=== PATIENT | female | born 1955 | race Caucasian/White ===

== ENCOUNTER 2017-11-09 15:03 | Inpatient (IN) ==
--- NOTE | 2017-11-09 15:35 | Emergency Department Report ---
General Adult HPI - General Chief complaint: Headache Stated complaint: high blood pressure,headache Time Seen by Provider: 11/09/17 15:31 Source: patient Mode of arrival: ambulatory Limitations: no limitations - History of Present Illness HPI narrative: 62-year-old female presents to the emergency department with the chief complaint of elevated blood pressure and an episode where her tongue was numb and felt like her upper extremity was heavy. Patient noted the numbness to her tongue and heaviness in her left upper extremity at approximately 0300 today and thought that she had just slept on her arm wrong and went back to bed. When she awoke her symptoms had resolved. She presented to Dr. Willard's office for further evaluation and treatment and was referred to the emergency department for CVA workup along with control of her elevated blood pressure. She denies any current pain or discomfort other than a typical frontal headache which is moderate in nature. The typical headache is normal for her when her blood pressure is elevated. The headache is dull in nature. No radiation. No other complaints or associated symptoms at this time. She was at home when she experienced her symptoms. - Related Data Home Medications Medication Instructions Recorded Confirmed Insulin Glargine,Hum.rec.anlog 53 unit SQ HS #0 vial 10/17/16 11/09/17 [Lantus] LINAGLIPTIN 5mg [Tradjenta] 5 mg PO DAILY #90 tab 10/17/16 11/09/17 Aspirin [Aspirin EC] 81 mg PO DAILY 11/09/17 11/09/17 Levothyroxine Sodium 100 mcg PO ACB 11/09/17 11/09/17 Lisinopril [Prinivil] 30 mg PO DAILY 11/09/17 11/09/17 Metformin [Glucophage] 1,000 mg PO BIDWM 11/09/17 11/09/17 Metoprolol Tartrate 100 mg PO BID 11/09/17 11/09/17 Naproxen Sodium [Aleve] 220 mg PO BID PRN 11/09/17 11/09/17 Allergies Allergy/AdvReac Type Severity Reaction Status Date / Time latex Allergy Intermediate RASH Verified 11/09/17 15:09 nickel Allergy Unknown Verified 11/09/17 15:09 Penicillins Allergy Unknown Verified 11/09/17 15:09 Sulfa (Sulfonamide Allergy Unknown Verified 11/09/17 15:09 Antibiotics) Review of Systems Constitutional: Denies: fever, chills Eyes: Denies: eye pain, vision change ENT: Denies: ear pain, throat pain Cardiovascular: Denies: chest pain, palpitations Respiratory: Denies: cough, dyspnea Gastrointestinal: Denies: abdominal pain, nausea, vomiting, diarrhea Genitourinary: Denies: urgency, dysuria, frequency Musculoskeletal: Denies: back pain, arthralgia Integumentary: Denies: erythema, rash Neurological: Reports: headache (typical). Denies: paresthesias Psychiatric: Denies: anxiety, depression Endocrine: Denies: fatigue, polydipsia Hematological/Lymphatic: Denies: easy bruising, lymphadenopathy Allergic/Immunologic: Denies: urticaria, itchy eyes PFSH Patient Stated Medical History Macular Degeneration Yes: mild, normal for age and DM Hypertension Yes Diabetes Mellitus Type 1 Yes Hx Kidney Stones Yes Other Yes: CKD Shingles Yes Blood Transfusions Yes: 1975 Post Menopausal Yes Surgical History: -hysterectomy due to fibroids in 1999. -c-sections X2. Family History: Reviewed and Noncontributory. - Social History Smoking status: Never smoker Substance use type: does not use Alcohol intake frequency: does not drink Physical Exam - Limitations Limitations: no limitations - General General appearance: alert, in no apparent distress - Normal Exams: Head:: Normocephalic without trauma Eyes:: Pupils are PERRLA w/ EOMI, No scleral icterus, irritation, or foreign bodies noted ENMT:: No facial trauma, nasal exudates, pharyngeal erythema, or exudates are noted Dental: No fractured, loose, or missing teeth noted Neck:: Full range of motion, without adenopathy, JVD, bruits or thyromegaly Chest/Respirations:: Clear all plata, with good airflow, and symmetry bilaterally Cardiovascular:: Regular rate and rhythm, without murmur or gallop, Pulses 2+ all extremities, capillary refill, <2 seconds all extremities Abdomen:: Bowel sounds positive, soft, non-tender, non-distended, no hepatosplenomegaly, masses or bruits noted Lymphatic:: No lymphadenopathy, or lymphedema noted Musculoskeletal:: No tenderness, or deformity noted, good range of motion, all extremities Integumentary:: No rashes, hives, or bruising noted, hair and nails, without abnormality Neurological:: Patient is alert (alert and oriented 3. Cranial nerves II12 intact. Muscle strength. Normal motor. Normal sensation. Normal coordination. Normal speech. Normal gait. Absent Babinski bilaterally. Reflexes 2/4 in all extremities. No focal neurologic deficit. Unremarkable neurologic examination.), and oriented, cranial nerves, motor/sensory/cerebellar , exams w/o gross deficits, to observation Psychiatric:: Patient exhibits, appropriate attention, emotion and affect Course Vital Signs Temperature 99.0 F 11/09/17 15:09 Pulse Rate 81 11/09/17 15:09 Respiratory Rate 19 11/09/17 15:09 Blood Pressure 237/107 H 11/09/17 15:09 Pulse Oximetry 94 11/09/17 15:09 Temperature 98.2 F 11/10/17 08:00 Pulse Rate 80 11/10/17 12:43 Respiratory Rate 16 11/10/17 11:49 Blood Pressure 182/72 H 11/10/17 12:43 Pulse Oximetry 98 11/10/17 12:43 Medical Decision Making - MDM Narrative Medical decision making narrative: Labs / imaging were discussed in detail with the patient and questions are answered. Patient is given fentanyl and Zofran intravenously in the emergency department under the thought that the improvement of the headache may improve the patient's blood pressure. Patient was then given 10 mg of hydralazine intravenously when her blood pressure did not appear to improve. Patient is to be allowed permissive hypertension and due to the concern that the 2 medications may hit her system at once and caused her blood pressure to drop lower than permissive hypertension would allow we will monitor her blood pressure for a few more readings and then if it still remains elevated Dr. Willard will add labetalol. Patient is discussed with Dr. Willard and admitted to his service to the CCU for further evaluation and treatment. Accepting physician is in agreement with the current plan of management. No further orders. Patient is given aspirin 324 mg by mouth 1. She is not a candidate for TPA as her symptoms have resolved in entirety. Her NIH is 0. She is admitted to the CCU in improved condition. No further orders from accepting physician. She does not have any urinary symptoms. Dr. Willard will await the results of the urine culture prior to initiating antibiotic therapy. - Differential Diagnosis CVA, TIA, metabolic disorder UTI - Lab Data Result diagrams: 11/10/17 04:42 11/10/17 04:42 Lab Results 11/09/17 11/09/17 11/09/17 Range/Units 15:33 16:28 16:28 WBC 11.2 H (4.5-11.0) T/MM3 RBC 4.77 (4.00-5.20) M/MM3 Hgb 13.2 (12-16) GM/DL Hct 40.5 (36-46) % MCV 84.9 (80-100) UM3 MCH 27.7 (26-34) UUG MCHC 32.6 (31-37) GM/DL RDW Std Deviation 38.9 (36.9-50.2) FL Plt Count 364 (130-400) T/MM3 MPV 9.8 (9.4-12.4) UM3 Immature Gran % (Auto) 0.5 (0.0-0.5) % Neut % (Auto) 65.3 (33-66) % Lymph % (Auto) 24.6 (23-45) % [place] % (Auto) 7.1 (0-9.0) % Eos % (Auto) 2.1 (0-4) % Baso % (Auto) 0.4 (0-2) % Neut # (Auto) 7.3 (1.8-7.7) T/MM3 Lymph # (Auto) 2.7 (1-4.8) T/MM3 [place] # (Auto) 0.8 (0-0.8) T/MM3 Eos # (Auto) 0.2 (0-0.5) T/MM3 Baso # (Auto) 0.0 (0-0.2) T/MM3 Abs Immat Gran (auto) 0.06 H (0.00-0.03) T/MM3 INR (0.92-1.18) APTT (24-36) SEC Turbidity (0-20) Sodium (134-144) MEQ/L Potassium (3.6-5) MEQ/L Chloride (98-107) MEQ/L Carbon Dioxide (22-30) MEQ/L Anion Gap (5-15) MEQ/L BUN (7-17) MG/DL Creatinine (0.7-1.2) mg/dL GFR Calculation BUN/Creatinine Ratio (6-26) RATIO Glucose (65-110) MG/DL Glucometer 73 (65-110) mg/dL Calculated Osmolality (261-280) MOSM/KG Calcium (8.4-10.2) MG/DL Total Bilirubin (0.20-1.30) MG/DL Icterus Index (0-7) AST (14-36) U/L ALT (1-35) U/L Alkaline Phosphatase (38-126) U/L Troponin I (0-0.12) ng/ml Total Protein (6.3-8.2) g/dL Albumin (3.5-5.0) g/dL Globulin (2.4-3.6) G/DL Albumin/Globulin Ratio (1.1-2.2) RATIO Specimen Hemolysis (0-25) Ur Collection Type Urine, void-cc/notcc Urine Color Yellow (YELLOW) Urine Clarity Sl cloudy Urine pH 5.0 (5.0-8.0) Ur Specific [place] >=1.030 H (1.015-1.025) Urine Protein 2+ A (NEGATIVE) Urine Glucose (UA) Negative (NEGATIVE) Urine Ketones Negative (NEGATIVE) Urine Occult Blood Trace-lysed (NEGATIVE) Urine Nitrate Positive A (NEGATIVE) Urine Bilirubin Negative (NEGATIVE) Urine Urobilinogen 0.2 (NORMAL) EU/DL Ur Leukocyte Esterase Negative (NEGATIVE) Urine RBC 0-1 (0-3) /HPF Urine WBC 20-30 H (0-5) /HPF Urine Bacteria 3+ H (NEGATIVE) Ur Culture Indicated? Cult reflexed &setup 11/09/17 11/09/17 11/09/17 Range/Units 16:28 16:28 18:01 WBC (4.5-11.0) T/MM3 RBC (4.00-5.20) M/MM3 Hgb (12-16) GM/DL Hct (36-46) % MCV (80-100) UM3 MCH (26-34) UUG MCHC (31-37) GM/DL RDW Std Deviation (36.9-50.2) FL Plt Count (130-400) T/MM3 MPV (9.4-12.4) UM3 Immature Gran % (Auto) (0.0-0.5) % Neut % (Auto) (33-66) % Lymph % (Auto) (23-45) % [place] % (Auto) (0-9.0) % Eos % (Auto) (0-4) % Baso % (Auto) (0-2) % Neut # (Auto) (1.8-7.7) T/MM3 Lymph # (Auto) (1-4.8) T/MM3 [place] # (Auto) (0-0.8) T/MM3 Eos # (Auto) (0-0.5) T/MM3 Baso # (Auto) (0-0.2) T/MM3 Abs Immat Gran (auto) (0.00-0.03) T/MM3 INR 1.04 (0.92-1.18) APTT 26.2 (24-36) SEC Turbidity < 20 (0-20) Sodium 144 (134-144) MEQ/L Potassium 3.8 (3.6-5) MEQ/L Chloride 103 (98-107) MEQ/L Carbon Dioxide 26 (22-30) MEQ/L Anion Gap 15 (5-15) MEQ/L BUN 25.0 H (7-17) MG/DL Creatinine 1.2 (0.7-1.2) mg/dL GFR Calculation 45 BUN/Creatinine Ratio 21 (6-26) RATIO Glucose 84 (65-110) MG/DL Glucometer 67 (65-110) mg/dL Calculated Osmolality 280 (261-280) MOSM/KG Calcium 9.8 (8.4-10.2) MG/DL Total Bilirubin 0.50 (0.20-1.30) MG/DL Icterus Index < 2 (0-7) AST 21 (14-36) U/L ALT 18 (1-35) U/L Alkaline Phosphatase 79 (38-126) U/L Troponin I < 0.012 (0-0.12) ng/ml Total Protein 8.2 (6.3-8.2) g/dL Albumin 4.6 (3.5-5.0) g/dL Globulin 3.6 (2.4-3.6) G/DL Albumin/Globulin Ratio 1.3 (1.1-2.2) RATIO Specimen Hemolysis < 15 (0-25) Ur Collection Type Urine Color (YELLOW) Urine Clarity Urine pH (5.0-8.0) Ur Specific [place] (1.015-1.025) Urine Protein (NEGATIVE) Urine Glucose (UA) (NEGATIVE) Urine Ketones (NEGATIVE) Urine Occult Blood (NEGATIVE) Urine Nitrate (NEGATIVE) Urine Bilirubin (NEGATIVE) Urine Urobilinogen (NORMAL) EU/DL Ur Leukocyte Esterase (NEGATIVE) Urine RBC (0-3) /HPF Urine WBC (0-5) /HPF Urine Bacteria (NEGATIVE) Ur Culture Indicated? - Radiology Data CT head: No acute processes. Chest x-ray: No acute processes. - EKG Data EKG #1 EKG results narrative: Sinus rhythm. 78 bpm. No STEMI. Disposition Clinical Impression: Uncontrolled hypertension TIA (transient ischemic attack) Qualifiers: Transient cerebral ischemia type: other Qualified Code(s): G45.8 - Other transient cerebral ischemic attacks and related syndromes [place] [facility] [place] Condition: Stable Time of Disposition: 17:20 (Admit. Dr. Willard. ) - Seen By: physician
--- NOTE | 2017-11-09 16:01 | XRay Report ---
Indication: htn PROCEDURE: XR chest 1V: Encounter: Initial Comparison: None FINDINGS: The lungs are clear. There is no abnormal airspace opacity, pleural effusion or pneumothorax identified. The heart size, pulmonary vasculature and mediastinum are within normal limits. No significant skeletal abnormality is seen. IMPRESSION: No acute cardiopulmonary abnormality. .
--- NOTE | 2017-11-09 16:03 | CT Scan Report ---
Indication: HTN, MARTE PROCEDURE: CT head/brain wo con: Encounter: Initial Comparison: None Technique: Axial CT images through the head were performed without contrast. Iterative Reconstruction dose reducing technique was utilized. FINDINGS: The ventricles are of normal size, shape, and contour for the patient's age. There are scattered areas of low attenuation in the white matter which most likely represent changes from chronic microvascular ischemia. The brainstem, cerebellum, and cerebral hemispheres otherwise have a normal morphology and CT attenuation. There is no evidence of midline displacement. No hemorrhage, signs of acute territorial stroke, mass effect, mass lesions, or edema is evident. The visualized portions of the skull base, midface, and calvarium demonstrate no abnormality. The paranasal sinuses are well aerated and free of significant disease. The tympanic and mastoid cavities appear normal. IMPRESSION: No acute intracranial abnormality or hemorrhage. .
[2017-11-09] MEDS: SALINE FLUSH 10ml SYRINGE IVF PRN ×3 (16:37→17:35)
[2017-11-09] MEDS ORDERED: FentaNYL 100 MCG/2 ML INJECTION IVP ONE (16:59)
[2017-11-09] MEDS ORDERED: ONDANSETRON 4 MG/2 ML INJECTION IVP ONE (16:59)
[2017-11-09] MEDS ORDERED: HYDRALAZINE 20 MG/ML INJECTION IVP ONE (17:22)
[2017-11-09] MEDS ORDERED: ASPIRIN 81 MG CHEWABLE TABLET PO ONE (17:24)
[2017-11-09] MEDS ORDERED: LABETALOL 100mg/20ml INJECTION IVP PRN (19:09)
--- NOTE | 2017-11-09 19:39 | History & Physical Report ---
History of Present Illness Date: 11/09/17 Chief complaint: TIA's and hypertensive emergency HPI: patient is a pleasent 62yo female known to our clinic. she has a history of T2DM, HTN, hyperlipidemia. she does take a baby aspirin daily. she was in her usual state of health until this AM. she woke up about 4AM with numbness and poor coordination in her tongue and left upper extremity weakness and poor coordination. this lasted about 30 minutes and resolved completely. she has just felt "out of it" and has had a moderate right parietal headache since then but nothing focal from a neurologic standpoint. patient was seen in clinic for a routine follow up today and this story was noted. it was also noted that her SBP's were in the 190's and 200's. it was recommended she go to the ER immediately and, after some convincing, she did. in the ER she had a normal head CT, an unremarkable cmp, a cbc with a mild leukocytosis and otherwise normal. coagulation studies were unremarkable. a CXR and ekg in the ER were unremarkable as well. UA in the ER today had a trace amount of ketones as well as some bacteria but patient has no urinary symptoms. UA otherwise unremarkable. SBP's were unchanged in the ER despite doses of IV fentanyl and hydralazine. patient did get 324mg PO ASA in ER once it was clear there was no head bleed. other vitals were stable. patient has had no neurologic issues since the event noted above this AM. she does note that she's had X2 similar episodes over the past month as well. otherwise she's doing ok. no residual focal deficits. had right parietal headache as noted above which is moderate. no other headaches. no stroke symptoms at this time. no seizure symptoms, cranial nerve symptoms, dysphagia, aspiration, fevers, chills, body aches, fatigue, weakness, falls, trauma, injuries, ear pain, sinus pain, sore throat, runny nose, photophobia, meningeal symptoms, confusion, obtundation, altered mentation, encephalopathic symptoms. no mood changes, depression symptoms, manic symptoms, personality changes. no numbness/weakness/tingling/pain in extremities or anywhere else at this time. no vision changes. no dizziness, syncope, near-syncope. no skin changes or new rashes. no recent travel, camping, sick exposures. no chest pain, SOA, orthopnea, PND, new edema, leg asymmetry. no changes in exertional tolerance. no heart failure symptoms. no palpitations, cough, sputum production. no vertigo or tinnitus. no abdominal pain, GERD symptoms, nausea, vomiting, diarrhea, constipation, bloody/black stools, hematemesis, coffee ground emesis, melena, BRBPR, constipation, diarrhea, bloody/black stools, boggy/inflammed/ swollen/painful focal joints or muscle groups. she is somewhat anxious about what's going on with this issues but no anxiety issues in general. no dysuria, hematuria, urinary frequency, flank pain, nocturia, urinary/bowel incontinance, urinary retention. no alcohol or illicit substance use. she does smoke still. no memory changes or blackouts. no polyuria or oliguria or other urinary symptoms/changes. no new issues otherwise at this time. Review of Systems - Constitutional Constitutional: Present: as per HPI - EENMT Eyes: Present: as per HPI Ears: Present: as per HPI Balance: Present: as per HPI Nose: Present: as per HPI Mouth/Throat: Present: as per HPI - Cardiovascular Cardiovascular: Present: as per HPI Vascular: Present: see HPI - Respiratory Respiratory: Present: as per HPI - Gastrointestinal Gastrointestinal: Present: as per HPI - Genitourinary Genitourinary: Present: as per HPI - Musculoskeletal Musculoskeletal: Present: as per HPI - Integumentary/Breasts Integumentary: Present: as per HPI - Neurological Neurological: Present: as per HPI - Psychiatric Psychiatric: Present: as per HPI - Endocrine Endocrine: Present: as per HPI - Hematologic/Lymphatic Hematologic/Lymphatic: Present: as per HPI - Allergic/Immunologic Allergic/Immunologic: Present: as per HPI Past Medical History Patient Stated Medical History Macular Degeneration Yes: mild, normal for age and DM Hypertension Yes Diabetes Mellitus Type 2 Yes Hx Kidney Stones Yes Other Yes: CKD Shingles Yes Blood Transfusions Yes: 1975 Post Menopausal Yes -HTN -hypothyroid -hyperlipidemia Surgical History: -hysterectomy due to fibroids in 1999. -c-sections X2. she did require a blood transfusion for one of these. Family History: -father had T2DM, HTN, CAD -Mother had breast cancer, HTN, CAD -X1 sister who has had breast cancer. Family History Updates: see the above. - Social History Smoking status: Never smoker Medications Home Medications Medication Instructions Recorded Confirmed Type Insulin Glargine,Hum.rec.anlog 53 unit SQ HS #0 vial 10/17/16 11/09/17 History [Lantus] LINAGLIPTIN 5mg [Tradjenta] 5 mg PO DAILY #90 tab 10/17/16 11/09/17 History Aspirin [Aspirin EC] 81 mg PO DAILY 11/09/17 11/09/17 History Levothyroxine Sodium 100 mcg PO ACB 11/09/17 11/09/17 History Lisinopril [Prinivil] 30 mg PO DAILY 11/09/17 11/09/17 History Metformin [Glucophage] 1,000 mg PO BIDWM 11/09/17 11/09/17 History Metoprolol Tartrate 100 mg PO BID 11/09/17 11/09/17 History Naproxen Sodium [Aleve] 220 mg PO BID PRN 11/09/17 11/09/17 History Allergies Allergy/AdvReac Type Severity Reaction Status Date / Time latex Allergy Intermediate RASH Verified 11/09/17 15:09 nickel Allergy Unknown Verified 11/09/17 15:09 Penicillins Allergy Unknown Verified 11/09/17 15:09 Sulfa (Sulfonamide Allergy Unknown Verified 11/09/17 15:09 Antibiotics) Exam Vital Signs: Temperature 98.6 F 11/09/17 18:44 Pulse Rate 92 11/09/17 17:46 Respiratory Rate 18 11/09/17 17:45 Blood Pressure 206/86 H 11/09/17 17:46 Pulse Oximetry 95 11/09/17 17:46 Telemetry Rhythm: Sinus Rhythm Height/Weight/BMI: Height 1.65 m Weight 94.6 kg Body Mass Index 34.7 - Constitutional Present: no acute distress, cooperative Comments: no combative, agitated, somnolent, obtunded. - Routine HEENT Exam Head: Present: normocephalic, atraumatic Comments: TM's clear b/l at this time. no mastoid tenderness b/l at this time. nares patent, valentin normal. no sinus pain to palpation. no conjuncitval injection. throat clear. no clinical evidence of mucor throughout ENT exam today. - Routine Neck Exam Present: supple, full ROM Comments: no JVD. no nuchal rigidity. no photophobia or clinical evidence of meningitis at this time. no clinical evidence of encephalopathy, wendi, depression, personality changes, altered mentation, obtundation, confusion, psychosis, delerium. trachea midline. - Routine Chest/Breast/Axilla Exam Comments: no tenderness to chest wall. - Routine Respiratory Exam Present: CTA bilaterally Comments: LCTAB. no crackles/wheezes/rales. moving air well. lung sounds heard in all lung plata b/l at this time. no respiratory distress, retractions, accessory muscle use, stridor, airway compromise b/l at this time. - Routine Cardiovascular Exam Present: RRR, no murmur Comments: no changes in cardiac exam from previous baseline. no new edema. legs symmetrical and compartments soft b/l in LE"s at this time. no boggy/inflammed/ swollen/painful focal joints or muscle groups. clinically well perfused in all 4 extremities b/l at this time. - Routine Abdominal Exam Present: soft (X4.), normoactive bowel sounds (X4.), non distended (X4.), non tender (X4.) Comments: no guarding, rebound, rigidity. no organomegally. no ascites, jaundice, distension. - Routine Exam Comments: no tenderness over bladder area. no clinical evidence of upper or lower UTI at this time. - Routine Extremities Exam Comments: see the above. no pallor or cyanosis of extremities. - Routine Back/Spine/Pelvis Exam Comments: see the above. - Routine Skin Exam Present: intact Comments: no skin changes from previous to uncovered areas. - Routine Neurological Exam Present: alert, oriented X3 CN2-12 in tact to testing. gag and cough normal. sensation/motor/muscle strength/DTR's normal and symmetrical b/l X4 extremities at this time. PERRLA. EOMI. no nystagmus. consensual reflex in tact. no clinical evidence of upper motor neuron lesions at this time. gait is normal. affect and cognition unchanged from usual baseline. memory and personality unchanged from usual baseline. no clinical evidence of wendi, depression, anxiety, altered mentation , obtundation, confusion, encephalopathy, meningitis, photophobia, neck rigidity , psychosis, delerium at this time. - Routine Psychiatric Exam Present: normal affect, normal thought process, cooperative, good insight, good judgment Comments: no homicidal/suicidal ideations. Results - Labs CBC & Chem 7: 11/09/17 16:28 11/09/17 16:28 Assessment and Plan Assessment and Plan: new onset TIA's hypertensive emergency tension/hypertensive induced headache T2DM HTN hyperlipidemia hypothyroid -admit to inpatient and ICU, vitals per gaitan protocol with call parameters, I's and O's, daily weights, diabetic/cardiac diet, telemetry. -add TSH, serial troponins X3, mg, phos now. see above for other testing and results from this stay. -cbc, cmp in the AM. -MRI/MRA head/neck ordered as is MRA neck. echocardiogram ordered. -continue ASA (patient already had 324mg PO today). add plavix at 75mg PO daily, first dose now. labetalol IV prn titrated to keep SBP's from 170 to 180 systolic. will allow some permissive HTN given her recent ischemic events. start novolog s/s, GLUBS, hypoglycemia protocol. continue current lisinopril from home with hold parameters. continue home synthroid. tylenol prn for headaches started. -hold home trandjenta, metformin, lantus as patient had some borderline low blood sugars earlier today. will consider reinstitution of these meds depending on what blood sugars look like from here on. -Dr. Shell of neurology consulted and case discussed with in detail. he agrees with current management above. -further management pending the above. tobacco use -consider nicotine patch if s/s withdrawal occur. right now there is no evidence of this. all other chronic medical conditions stable and no changes to plan of care at this time. ppx -SCD's for DVT ppx. hold on pharmacologic DVT ppx right now given high blood pressures but will consider shortly. -PO diet as above for GI ppx. -FULL CODE -dispo heavily dependent on the above. DVT Prophylaxis: SCD's GI Prophylaxis: other (PO diet.) Resuscitation Status: Full Code - Time spent with patient Time with patient PN: 50 minutes - Physician Narrative Narrative: Date: 11/09/17 Time: 1935 Sepsis Assessment - Evaluation Severe Sepsis: none seen
[2017-11-09] MEDS ORDERED: DEXTROSE 50% SYRINGE 50ml (1 AMP) IVP PRN (19:53)
[2017-11-09] MEDS ORDERED: GLUCOSE ORAL GEL 40% 37.5gm PO PRN (19:53)
[2017-11-09] MEDS ORDERED: CLOPIDOGREL 75 MG TABLET PO ONE (20:03)
[2017-11-09] MEDS: ACETAMINOPHEN 325 MG TABLET PO PRN (20:13)
[2017-11-10] MEDS: LEVOTHYROXINE 100 MCG TABLET PO SCH (06:04)
[2017-11-10] MEDS: LABETALOL 100mg/20ml INJECTION IVP PRN ×3 (08:27→18:27)
[2017-11-10] MEDS: CLOPIDOGREL 75 MG TABLET PO SCH (08:32)
[2017-11-10] MEDS: ASPIRIN *EC* 81 MG TABLET PO SCH (08:32)
[2017-11-10] MEDS ORDERED: LISINOPRIL 30 MG TABLET PO SCH (09:00)
--- NOTE | 2017-11-10 09:44 | Progress Note ---
- Date 11/10/17 Subjective: no events called on telemetry. patient feels like things are going well now. denies issues since late yesterday. apparently she had episode last night where she felt like she had some trouble wordfinding. no other obvious focal deficits with this but this resolved within a few minutes and went away. overall SBP's in 160's to 180's overnight but still spikes into the 200's at times. since the above mentioned time she has felt well. her right sided parietal headache is unchanged from admission and this does seem to respond to tylenol for the most part. no new headaches and no changes in her baseline one. no numbness/weakness/tingling in extremities or otherwise. no fevers, chills, body aches, fatigue, weakness, falls, trauma, injuries, ear pain, sinus pain, sore throat, runny nose. she's a little lightheaded right after the labetalol is given and right when she gets up but this is mild, only lasts a second and then resolves. no vertigo and this appears to be true lightheadedness. no facial numbness/droop and no vision changes. no dysphagia. no cranial nerve symptoms or deficits. no chest pain. patient denies SOA at any time to me. no changes in exertional tolerance. no new edema or leg asymmetry. no palpitations. no cough, sputum production, hemoptysis. patient did require 2 liters of oxygen overnight at times but hard to say why as she denies SOA to me. O2 sats appear to have dropped into the 80' s last night but there's some question as to whether the oximeter was picking up correctly. either way, she's had no cardio-respiratory symptoms throughout the day and O2 sats have been fine since. no abdominal pain, GERD symptoms, nausea, vomiting, diarrhea, constipation, bloody/black stools, hematemesis, coffee ground emesis, melena, BRBPR, dysphagia, GI warning symptoms. eating and drinking without issue. appetite is ok. no night sweats. had X1 normal BM since we spoke yesterday. no boggy/inflammed/swollen focal joints or muscle groups. denies falls, trauma, injuries, unsteadiness. no mood changes, depression symptoms, neck rigidity, meningeal symptoms, confusion, obtundation, altered mentation, psychotic symptoms, delerium. no new issues otherwise at this time. Objective Vital signs: Temperature 98.2 F 11/10/17 08:00 Pulse Rate 79 11/10/17 08:00 Respiratory Rate 28 H 11/10/17 04:00 Blood Pressure 152/79 H 11/10/17 04:00 Pulse Oximetry 99 11/10/17 04:00 Rhythm: Normal Sinus Rhythm Height/Weight/BMI: Height 1.65 m Weight 94.4 kg Body Mass Index 34.7 - Constitutional Present: no acute distress, cooperative Comments: not combative, somnolent, obtunded. - Routine HEENT Exam Head: Present: normocephalic, atraumatic ENT: Present: mucous membranes moist Comments: no changes. - Routine Respiratory Exam Present: CTA bilaterally Comments: lungs CTAB without crackles, wheezes, rales at this time. moving air well. lung sounds heard in all lung plata b/l at this time. no respiratory distress , retractions, accessory muscle use, stridor, airway compromise b/l at this time. - Routine Cardiovascular Exam Present: RRR, no murmur Comments: no changes to cardiac exam from previous. no new edema. legs symmetrical and compartments soft b/l in LE's at this time. clinically well perfused in all 4 extremities b/l at this time. no pallor or cyanosis of extremities. no boggy/ inflammed/swollen focal joints or muscle groups. - Routine Abdominal Exam Present: soft (X4.), normoactive bowel sounds (x4.), non distended (X4.), non tender (X4.) Comments: no distension, ascites, jaundice. no organomegally. no rebound, guarding, rigidity. - Routine Exam Comments: no tenderness over bladder area. no clinical evidence of upper UTI at this time. - Routine Extremities Exam Comments: see the above. - Routine Back/Spine/Pelvis Exam Comments: see the above. - Routine Musculoskeletal Exam Musculoskeletal: Present: no joint swelling, no tenderness, no erythema, moving extremities well - Routine Skin Exam Present: intact Comments: no skin changes from previous to uncovered areas. - Routine Neurological Exam Present: alert, oriented X3 CN2-12 in tact. sensation/motor/muscle strength/DTR's normal and symmetrical b/ l X4. PERRLA. EOMI. no nystagmus. consensual reflex in tact. no clinical evidence of upper motor neuron lesion at this time. affect and cognition unchanged from usual baseline. no clinical evidence of wendi, depression, anxiety, altered mentation, obtundation, meningitis, confusion, psychosis, photophobia, delerium at this time. - Routine Lymphatic Exam Comments: no lymphedema. - Routine Psychiatric Exam Present: normal affect, normal thought process, good insight Comments: see the above as well. Results - Labs CBC & Chem 7: 11/10/17 04:42 11/10/17 04:42 Assessment and Plan Assessment and Plan: new onset TIA's hypertensive emergency acute cystitis with gram negative rods in urine culture growing thus far tension/hypertensive induced headache questionable hypoxemia last night new anemia of uncertain etiology T2DM HTN hyperlipidemia hypothyroid -continue inpatient and ICU, vitals per gaitan protocol with call parameters, I's and O's, daily weights, diabetic/cardiac diet, telemetry, up with assist. blood pressures generally in 160's to 180's systolic and can bring down more aggressively now that we're far enough out. bp still does spike from time to time. hard to tell whether hypoxemia was genuine as noted above. patient denies cardiorespiratory symptoms as noted above. O2 sats ok today. history or physical exam not yielding an obvious cause. will continue to monitor on continuous pulse oximetry here in the ICU and see if it reoccurs. -TSH, troponins X3, mg, phos, MRI/MRA head/neck, MRA neck unremarkable at this time. GLUBS only as high as mid-100's at highest. -follow cbc and cmp in the AM. follow H and H this evening. -urine culture with gram negative rods and speciation and sensitivities pending. echocardiogram pending. -continue aspirin, plavix, labetalol IV prn, novolog s/s, GLUBS, hypoglycemia protocol. restart home lisinopril with dose now. continue home synthroid. continue tylenol prn for headaches. will likely convert previous home metoprolol to PO labetalol upon discharge. continue cipro day 1 orally. -continue to hold home trandjenta, metformin, lantus, metoprolol for now. -Dr. Shell of neurology consulted and case discussed with in detail. he agrees with current management above. -further management pending the above. tobacco use -consider nicotine patch if s/s withdrawal occur. all other chronic medical conditions stable and no changes to plan of care at this time. ppx -continue SCD's for DVT ppx. holding on pharmacologic DVT ppx right now given high blood pressures but will consider shortly. still has some spikes into 200's after her MRI today. -PO diet as above for GI ppx. -FULL CODE -dispo will continue ICU at this time. DVT Prophylaxis: SCD's GI Prophylaxis: other (PO diet.) Resuscitation Status: Full Code - Time spent with patient Time with patient PN: 25 minutes Sepsis Assessment - Evaluation Severe Sepsis: none seen
[2017-11-10] MEDS: INSULIN ASPART 100unit/ml INJECTION SQ PRN (10:19)
[2017-11-10] MEDS ORDERED: SALINE FLUSH 10ml SYRINGE ONE (10:45)
--- NOTE | 2017-11-10 11:41 | Consultation ---
DATE OF CONSULTATION 11/10/[address] Willard PATIENT'S CHIEF COMPLAINT Speech problem and left sided numbness and weakness. HISTORY OF PRESENT ILLNESS The patient is a 62-year-old female with history of hypertension, hyperlipidemia and diabetes mellitus. The patient woke up in the [employer] and powerplant [employer] yesterday with symptoms of difficulty expressing herself and speaking. The patient was having difficulty moving her left arm due to weakness and mild numbness. She also had some numbness on the left side of her face. The patient went back to sleep and woke up later in the morning with resolution of those symptoms. She came to see Dr. Willard later in the day to check on some other lab work that she has done earlier. Her blood pressure was found to be very high in the 200/100 range. The patient was admitted to the hospital to evaluate for a potential stroke and blood pressure control. She was started on labetalol and this has helped decrease her blood pressure gradually. She continues to have spike in blood pressure in the 190/100 range. The patient said that overnight she had another episode of difficulty speaking which lasted for about 2 minutes. This has later improved with no residual problem. She denies having any current weakness or numbness in the extremities. Her speech is back to normal. She is still anxious about her condition and she complains of headache, probably associated with high blood pressure. The patient had a CT scan in the emergency room that was read as unremarkable. There was area of potential ischemic changes in the right hemisphere which could be old. The patient's lab work also showed evidence of urinary tract infection. The patient has not been complaining about that in particular. PHYSICAL EXAMINATION The patient was awake, alert, oriented x 3. Pupils were round, reactive and equal. Extraocular muscles were intact. Visual field was full. Speech was slow, hesitant and articulate. There was no significant facial weakness or numbness on examination. Motor examination in the upper extremities was normal bilaterally. There was some fine motor slowing on the left compared to the right. Coordination for [id number] was slightly slower on the left compared to the right. Sensory examination for light touch and temperature sensation was symmetrical in the arms and diminished in the feet due to neuropathy from diabetes. Deep tendon reflexes were 2-/4. Plantar reflexes were mute bilaterally. ASSESSMENT Transient ischemic attack associated with expressive aphasia, left facial and arm weakness and numbness. This initially resolved with potential recurrence overnight. The patient was started on Plavix in addition to the aspirin she has been taking on a regular basis for stroke prevention. Her blood pressure continues to be elevated despite being on labetalol. This has caused the patient to have headache and it also can be a risk factor for having TIAs due to vasospasm. PLAN 1. Continue aspirin and Plavix for stroke prevention. 2. Optimize treatment for high blood pressure and try to increase it by 10% daily if possible. 3. Provide good fluid intake. 4. Provide speech evaluation for swallowing and articulation. 5. Treat the UTI promptly which sometimes can worsen her symptoms in general. 6. The patient may benefit from physical and occupational therapy if she has more weakness. KERRY
[2017-11-10] MEDS: CIPROFLOXACIN 250 MG TABLET PO SCH ×2 (14:12→23:02)
[2017-11-10] MEDS: ACETAMINOPHEN 325 MG TABLET PO PRN ×2 (14:13→18:28)
[2017-11-10] MEDS: SALINE FLUSH 10ml SYRINGE IVF PRN ×2 (14:15→18:29)
--- NOTE | 2017-11-10 15:33 | Magnetic Resonance Report ---
Indication: TIA's PROCEDURE: MR head/brain/ang head wo/w: Encounter: Initial Comparison: CT head from yesterday Technique: Multiplanar, multisequence, MR imaging of the head with and without contrast was acquired. MRA imaging of the head without contrast was acquired. Maximum intensity projection (MIP) reformatted images were produced. 3-dimensional volume rendered imaging of the [place] was performed by the technologist on a dedicated workstation. Contrast: 19 mL of ProHance Findings: MRI head: The ventricles are of normal size, shape, and contour for the patient's age. There are small nonspecific punctate areas of T2-weighted and T2 FLAIR weighted signal abnormality in the deep frontoparietal white matter that most likely represent small vessel ischemic disease. This is of a degree that is at the upper limits of normal for the patient's age. The brain stem, cerebellum, and cerebral hemispheres otherwise have a normal morphologic appearance as well as MR signal intensity on all pulse sequences. Following intravenous administration of contrast, no areas of abnormal enhancement are evident. There are no areas of restricted diffusion on diffusion weighted imaging to suggest an acute infarct. There is no evidence of an intracranial mass lesion, intracranial hemorrhage, or hydrocephalus. The visualized portions of the orbits, calvarium, paranasal sinuses, and skull base demonstrate no significant abnormality. MRA head: The intracranial portions of the vertebral arteries, internal carotid arteries, and their major branches show no significant stenosis or other vascular anomaly. No aneurysms or vascular malformations are evident. Impression: 1. MRI head: Unremarkable MRI of the head for the patient's age with and without contrast. 2. MRA head: No evidence of aneurysm or flow-limiting arterial stenosis. .
[2017-11-10 15:40] VITALS: BMI 34.6
--- NOTE | 2017-11-10 15:45 | Magnetic Resonance Report ---
Indication: TIA PROCEDURE: MR angio neck wo/w con: Comparison: None Technique: MRA imaging of the neck with and without contrast was acquired. Maximum intensity projection (MIP) reformatted images were produced. Contrast: 19 mL ProHance Findings: The carotid bifurcations are widely patent bilaterally with normal flow-related enhancement within the common carotid, internal carotid, and external carotid arteries. The vertebral arteries are normal in size without evidence of significant stenosis. Impression: Unremarkable MRA of the neck with and without contrast. No stenosis by NASCET criteria. .
[2017-11-10] MEDS: LISINOPRIL 30 MG TABLET PO SCH (19:13)
[2017-11-11] MEDS: ACETAMINOPHEN 325 MG TABLET PO PRN ×3 (05:10→21:21)
[2017-11-11] MEDS: LEVOTHYROXINE 100 MCG TABLET PO SCH (05:32)
[2017-11-11] MEDS: ASPIRIN *EC* 81 MG TABLET PO SCH (08:19)
[2017-11-11] MEDS: CIPROFLOXACIN 250 MG TABLET PO SCH ×2 (08:19→21:13)
[2017-11-11] MEDS: CLOPIDOGREL 75 MG TABLET PO SCH (08:20)
[2017-11-11] MEDS: LISINOPRIL 30 MG TABLET PO SCH (08:20)
[2017-11-11] MEDS: LABETALOL 100mg/20ml INJECTION IVP PRN ×2 (09:01→21:14)
--- NOTE | 2017-11-11 11:21 | Progress Note ---
- Date 11/11/17 Subjective: no issues on telemetry overnight. n acute issues overnight. bp's in 160's/80' s currently. overall has been trending down. dropped O2 sats last night and this appears to be a trend when sleeping and is likely chronic. patient states her headaches from yesterday have reesolved now. no new headaches. no stroke symptoms or focal neurologic deficits. no numbness/weakness/tingling/pian in extremities or otherwise at any time. no dysphagia or aspiration. PO intake has been good. no face numbness/weakness/tingling/droop. no cranial nerve symptoms or deficits. no vision changes, hearing changes, URI symptoms, fatigue , weakness, falls, trauma, injuries, fevers, chills body aches, chest pain, SOA , heart failure symptoms, palpitations, new edema, leg asymmetry, changes in exertional tolerance, cough, sputum production, hemoptysis, boggy/inflammed/ swollen focal joints or muscle groups. no skin changes or new rashes. no confusion, depression symptoms, altered mentation, obtundation, personality changes, encephalopathic symptoms, photophobia, meningeal symptoms. no abdominal pain, GERD symptoms, dizziness, syncope, near-syncope, vertigo, hematemesis, coffee ground emesis, melena, BRBPR, constipation, diarrhea, bloody /balck stools, GI warning symptoms. no dysuria, hematuria, urinary frequency, flank pain, nocturia, urinary/bowel incontinance, urinary retention, polyuria, oliguria, other urinary symptoms/changes. patient on room air now but was put on 2 liters of oxygen last night. no new issues otherwise at this time. Objective Vital signs: Temperature 96.7 F L 11/11/17 08:01 Pulse Rate 76 11/11/17 10:15 Respiratory Rate 21 11/11/17 10:15 Blood Pressure 203/98 H 11/11/17 10:15 Pulse Oximetry 94 11/11/17 10:15 Rhythm: Normal Sinus Rhythm Height/Weight/BMI: Height 1.65 m Weight 94.4 kg Body Mass Index 34.6 - Constitutional Present: no acute distress, cooperative - Routine HEENT Exam Head: Present: normocephalic, atraumatic ENT: Present: mucous membranes moist - Routine Respiratory Exam Present: CTA bilaterally Comments: LCTAB at this time. no crackles, wheezes, rales. lung sounds heard in all lung plata b/l at this time. patient moving air well. lung sounds heard in all lung plata b/l at this time. no respiratory distress, retractions, accessory muscle use, stridor, airway compromise b/l at this time. - Routine Cardiovascular Exam Present: RRR Comments: cardiac exam unchanged from previous. no changes. no new edema. no stigmata of heart failure. legs symmetrical and compartments soft b/l in LE's at this time. clinically well perfused in all 4 extremities b/l at this time. no boggy /inflammed/swollen focal joints or muscle groups. no pallor or cyanosis of extremities. - Routine Abdominal Exam Present: soft (X4.), normoactive bowel sounds (X4.), non distended (X4.), non tender (x4.) Comments: no guarding, rebound, rigidity. no organomegally. no ascites, jaundice, distension. - Routine Exam Comments: no tenderness over bladder area. no clinical evidence of upper UTI at this time. - Routine Extremities Exam Comments: see above. - Routine Back/Spine/Pelvis Exam Comments: see the above. - Routine Musculoskeletal Exam Musculoskeletal: Present: no joint swelling, no tenderness, no erythema, moving extremities well - Routine Skin Exam Present: intact Comments: no skin changes from previous to uncovered areas. - Routine Neurological Exam Present: alert, oriented X3 CN2-12 in tact. sensation/motor/muscle strength/DTR's normal and symmetrical b/ l X4. PERRLA. EOMI. no nystagmus. consensual reflex in tact. no clinical evidence of upper motor neuron lesion at this time. affect and cognition unchanged from usual baseline. no clinical evidence of wendi, depression, anxiety, altered mentation, obtundation, meningitis, confusion, psychosis, photophobia, delerium at this time. - Routine Lymphatic Exam Comments: no lymphedema. - Routine Psychiatric Exam Present: normal affect, normal thought process, cooperative Comments: see the above as well. Results - Labs CBC & Chem 7: 11/11/17 04:25 11/11/17 04:25 Assessment and Plan Assessment and Plan: new onset TIA's hypertensive emergency acute cystitis secondarey to nagy sensitive echoli tension/hypertensive induced headache nighttime hypoxemia which is likely chronic. EDVIN? new anemia of uncertain etiology T2DM HTN hyperlipidemia hypothyroid -continue inpatient and send to floor today. vitals per gaitan protocol with call parameters, I's and O's, daily weights, diabetic/cardiac diet, telemetry, up with assist. orders given as reminder to abide by call parameters. will do overnight oximetry tonight. start ambulating TID. -cbc today normal. cmp today generally stable. GLUBS generally in low to mid-100's. UCX with greater than 100,000 CFU of nagy sensitive echoli growing. -cbc, cmp in the AM. -echocardiogram pending. b/l renal dopplar u/s tomorrow. -tighten up parameters and increase dose of labetalol IV prn for high bp's. start hydralazine PO with hold parameters. continue current ASA, plavix, novolog s/s, GLUBS, hypoglycemia protocol. increase lisinopril to 40mg PO daily. continue home synthroid. limted with bp meds secondary to sulfa allergy. I did speak with pharmacy and confirm there's no sulfa component to hyddralazine. continue cipro PO day 2. continue tylenol prn for headaches. -continue to hold home trandjenta, metformin, lantus, metoprolol for now. -Dr. Shell of neurology consulted and case discussed with in detail. he agrees with current management above. -further management pending the above. tobacco use -consider nicotine patch if s/s withdrawal occur. all other chronic medical conditions stable and no changes to plan of care at this time. ppx -continue SCD's for DVT ppx. holding on pharmacologic DVT ppx right now given high blood pressures. -PO diet as above for GI ppx. -FULL CODE -dispo will continue ICU at this time and hopefully send out to the floor today if bp's better. DVT Prophylaxis: SCD's Resuscitation Status: Full Code - Time spent with patient Time with patient PN: 25 minutes Sepsis Assessment - Evaluation Severe Sepsis: none seen
[2017-11-11] MEDS: HYDRALAZINE 10 MG TABLET PO SCH ×2 (12:00→19:34)
[2017-11-11] MEDS: INSULIN ASPART 100unit/ml INJECTION SQ PRN (21:22)
[2017-11-11] MEDS: HYDRALAZINE 25 MG TABLET PO SCH (21:37)
[2017-11-12] MEDS: LABETALOL 100mg/20ml INJECTION IVP PRN (04:31)
[2017-11-12] MEDS: INSULIN ASPART 100unit/ml INJECTION SQ PRN ×3 (06:26→20:50)
[2017-11-12] MEDS: LEVOTHYROXINE 100 MCG TABLET PO SCH (06:26)
[2017-11-12] MEDS: CIPROFLOXACIN 250 MG TABLET PO SCH ×2 (08:20→20:38)
[2017-11-12] MEDS: CLOPIDOGREL 75 MG TABLET PO SCH (08:20)
[2017-11-12] MEDS: LISINOPRIL 40 MG TABLET PO SCH (08:20)
[2017-11-12] MEDS: HYDRALAZINE 25 MG TABLET PO SCH ×4 (08:20→20:38)
[2017-11-12] MEDS: ASPIRIN *EC* 81 MG TABLET PO SCH (08:20)
[2017-11-12] MEDS: ACETAMINOPHEN 325 MG TABLET PO PRN (08:21)
--- NOTE | 2017-11-12 09:49 | Ultrasound Report ---
Indication: hypertension, chronic kidney disease PROCEDURE: US renal doppler: Encounter: Initial Comparison: None Technique: Grayscale and color Doppler sonographic imaging of both kidneys was performed with duplex evaluation of the renal arteries. Findings: Scans of the kidneys demonstrate normal morphology. The right kidney measures 11.7 cm in length. The left kidney measures 11.2 cm in length. There is no no hydronephrosis. Probable nephrolithiasis bilaterally. Color Doppler imaging demonstrates normal vascularization. Resistive indices from the intrarenal arteries in the upper, middle, and lower portions of the right kidney are normal. Resistive indices from the intrarenal arteries in the upper, middle, and lower portions of the left kidney are normal. Arterial waveforms are normal. Impression: No evidence of hemodynamically significant renal arterial stenosis. There is a preliminary report by [facility]. The preliminary report indicates that the findings are suspicious for bilateral renal artery stenosis. I do not agree with this interpretation. .
[2017-11-12] MEDS ORDERED: LABETALOL 100 MG TABLET PO SCH (10:38)
--- NOTE | 2017-11-12 10:43 | Progress Note ---
- Date 11/12/17 Subjective: no acute events overnight. no issues on telemetry. patient switched to oral labetalol today. about 10 minutes after getting her first dose she felt "heavy all over". she felt generally weak. this sensation lasted about 30 minutes and completely went away. patient currently feels fine and is back to her usual baseline. vitals and blood pressure looked great throughout all this. HR remained ok as well. she felt like her whole head was itching when this was going on but this has resolved as well. no headaches, stroke symptoms, focal neurologic deficits, syncope, near-syncope, black outs, memory loss, numbness/ weakness/tingling/droop in face. no cranial nerve symptoms or deficits. no numbness/weakness/tingling in arms or legs. no seizure symptoms, ear pain, sinus pain, sore throat, runny nose. fatigue and generalized weakness now resolved. no vision changes, hearing changes, vertigo, dizziness, syncope, near -syncope, falls, trauma, injuries at any time. gait and balance has been good. she's had no issues at all before or since this. appetite good and tolerating PO intake well. had X1 normal BM per patient since our last visit. no chest pain, SOA, orthopnea, PND, new edema, leg asymmetry, changes in exertional tolerance. she's been ambulating without issue. no palpitations, cough, sputum production, hemoptysis. no abdominal pain, GERD symptoms, nausea , vomiting, diarrhea, constipation, bloody/black stools, hematemesis, coffee ground emesis, melena, BRBPR, dysphagia, aspiration symptoms, GI warning symptoms. no dysuria, hematuria, urinary frequency, flank pain, nocturia, urinary/bowel incontinance, urinary retention, other urinary symptoms/changes, polyuria, oliguria, other urinary symptoms. no boggy/painful/swollen/inflammed joints or focal muscles groups b/l at this time. no mood changes, depression symptoms, anxiety, altered mentation, obtundation, confusion, changes in personality. no new issues otherwise since last visit. Objective Vital signs: Temperature 96.6 F L 11/12/17 08:00 Pulse Rate 77 11/12/17 08:00 Respiratory Rate 20 11/12/17 08:00 Blood Pressure 165/104 H 11/12/17 08:00 Pulse Oximetry 96 11/12/17 08:00 Rhythm: Normal Sinus Rhythm Height/Weight/BMI: Height 1.65 m Weight 93.6 kg Body Mass Index 34.6 - Constitutional Present: no acute distress, cooperative - Routine HEENT Exam Head: Present: normocephalic, atraumatic Eye: Present: EOMI, PERRL ENT: Present: mucous membranes moist - Routine Respiratory Exam Present: CTA bilaterally Comments: LCTAB. no crackles, wheezes, rales. moving air well. lung sounds heard in all lung plata b/l at this time. no respiratory distress, retractions, accessory muscle use, stridor, airway compromise b/l at this time. - Routine Cardiovascular Exam Present: RRR Comments: cardiac exam unchanged from previous. no new edema. legs symmetrical and compartments soft b/l in LE's at this time. clinically well perfused in all 4 extremities b/l at this time. no boggy/inflammed/swollen focal joints or muscle groups. no pallor or cyanosis of extremities. - Routine Abdominal Exam Present: soft (X4.), normoactive bowel sounds (x4.), non distended (X4.), non tender (x4.) Comments: no guarding, rebound, rigidity. no ascites, jaundice or distension. - Routine Exam Comments: no tenderness over bladder area. no clinical evidence of upper UTI at this time. - Routine Extremities Exam Comments: see the above as well. - Routine Back/Spine/Pelvis Exam Comments: see the above as well. - Routine Musculoskeletal Exam Musculoskeletal: Present: no clubbing or cyanosis, no joint swelling, no tenderness, no erythema, moving extremities well - Routine Skin Exam Present: intact Comments: no skin changes from previous to uncovered areas. - Routine Neurological Exam Present: alert, oriented X3 CN2-12 in tact. sensation/motor/muscle strength/DTR's normal and symmetrical b/ l X4. PERRLA. EOMI. no nystagmus. consensual reflex in tact. no clinical evidence of upper motor neuron lesion at this time. affect and cognition unchanged from usual baseline. no clinical evidence of wendi, depression, anxiety, altered mentation, obtundation, meningitis, confusion, psychosis, photophobia, delerium at this time. - Routine Lymphatic Exam Comments: no lymphedema. - Routine Psychiatric Exam Present: normal affect, normal thought process, cooperative, good insight, good judgment Comments: see the above. Results - Labs CBC & Chem 7: 11/12/17 04:24 11/12/17 04:24 Assessment and Plan Assessment and Plan: new onset TIA's hypertensive emergency 30 minute period of generalized weakness which appears to be side effect of labetalol acute cystitis secondarey to nagy sensitive echoli tension/hypertensive induced headache nighttime hypoxemia which is likely chronic. EDVIN? new anemia of uncertain etiology T2DM HTN hyperlipidemia hypothyroid -continue inpatient. vitals per gaitan protocol with call parameters, I's and O's, daily weights, diabetic/cardiac diet, telemetry, up with assist. overnight oximetry pending. continue ambulating TID. lowest bp during this event noted above was in 130's systolic and was generally in 140's systolic which isn' t much changed from previous. HR, O2 sats, RR and other vital parameters were normal throughout now. currently these issues have resolved and she's returned to symptomatic baseline. -cbc's normal. cmp's with sugar in 100's and otherwise unremarkable. GLUBS in 100's on average as well. echocardiogram with mild pulmonary HTN and otherwise unremarkable per verbal report from Dr. Garcia. no thrombus. repeat EKG just now non-acute and unchanged from usual baseline. see previous notes for other testing and results from this stay. -b/l renal dopplar pending. troponins X3 with call parameters ordered but symptoms above likely from the beta tati. -cbc and cmp in the AM. -discontinued IV prn labetalol and converted to 300mg PO BID (patient already on max dose of metoprolol coming in) initially. will decrease to 200mg PO BID now and see if it's better tolerated. continue hydralazine at 25mg PO QID. continue current ASA, plavix, novolog s/s (while inpatient), GLUBS, hypoglycemia protocol. continue current lisinopril and synthroid. continue current cipro. continue tylenol prn for headaches. -continue to hold home tradjenta, metformin, lantus for now. will likely restart tradjenta upon discharge but may hold lantus. will dc metoprolol on discharge and replace with the labetalol. -Dr. Shell of neurology consulted. -further management pending the above. tobacco use -consider nicotine patch if s/s withdrawal occur. all other chronic medical conditions stable and no changes to plan of care at this time. ppx -continue SCD's for DVT ppx. extremely high blood pressures have limited pharmacologic DVT ppx but lovenox started now that bp's have come down pending the above. -PO diet as above for GI ppx. -FULL CODE -dispo continue as inpatient now. titrate bp meds to patient tolerating and to effect as best we can. hopefully discharge tomorrow. DVT Prophylaxis: SCD's, Lovenox GI Prophylaxis: other (PO diet.) Resuscitation Status: Full Code - Time spent with patient Time with patient PN: 25 minutes Sepsis Assessment - Evaluation Severe Sepsis: none seen
[2017-11-12] MEDS: ENOXAPARIN 40 MG/0.4 ML INJECTION SQ SCH (17:16)
[2017-11-12] MEDS: LABETALOL 100 MG TABLET PO SCH (20:38)
[2017-11-13] MEDS: ACETAMINOPHEN 325 MG TABLET PO PRN (04:45)
[2017-11-13] MEDS: INSULIN ASPART 100unit/ml INJECTION SQ PRN ×2 (06:05→11:44)
[2017-11-13] MEDS: LEVOTHYROXINE 100 MCG TABLET PO SCH (06:05)
--- NOTE | 2017-11-13 07:48 | Echocardiogram ---
DATE OF PROCEDURE November 10, [address] Kip Willard This is a two-dimensional echo with spectral Doppler, color-flow and M-mode. It was obtained in a patient with TIA. Left atrial dimension is normal. Left ventricular end-diastolic dimension is normal. Left ventricle wall thickness is normal. LV systolic function is normal with ejection fraction of about 64%. Right atrium is normal. Right ventricle is normal. Aortic root dimension is normal. Mitral valve is morphologically normal. Aortic valve shows mild fibrocalcific changes with no stenosis. Mild aortic insufficiency is present. Tricuspid valve shows mild tricuspid regurgitation with estimated pulmonary artery systolic pressure of 34. Pulmonary valve shows mild pulmonary insufficiency. There is no pericardial effusion. Grossly there is no intracardiac thrombus or mass. IMPRESSION 1. Grossly no intracardiac thrombus or mass. 2. Normal LV systolic function with ejection fraction of about 65%. 3. Mild aortic sclerosis with mild aortic insufficiency. 4. Mild tricuspid regurgitation with estimated pulmonary artery systolic pressure of 34. 5. Mild pulmonary insufficiency. MTDD
[2017-11-13] MEDS: CIPROFLOXACIN 250 MG TABLET PO SCH (08:29)
[2017-11-13] MEDS: ASPIRIN *EC* 81 MG TABLET PO SCH (08:29)
[2017-11-13] MEDS: ENOXAPARIN 40 MG/0.4 ML INJECTION SQ SCH (08:30)
[2017-11-13] MEDS: LABETALOL 100 MG TABLET PO SCH (08:30)
[2017-11-13] MEDS: CLOPIDOGREL 75 MG TABLET PO SCH (08:30)
[2017-11-13] MEDS: HYDRALAZINE 25 MG TABLET PO SCH (08:30)
[2017-11-13] MEDS: LISINOPRIL 40 MG TABLET PO SCH (08:31)
[2017-11-13] MEDS ORDERED: HYDRALAZINE 25 MG TABLET PO SCH (12:00)
[2017-11-13 12:16] VITALS: BP 149/75; PULSE 74; RESP 18; TEMP 97.8; O2SAT 94
--- NOTE | 2017-11-13 13:34 | Progress Note ---
- Date 11/13/17 Subjective: no acute issues since last visit. no events called on telemetry. patient doing well. no issues since our last visit. the heavy feeling she had after her labetalol yesterday resolved and hasn't come back. no stroke symptoms, focal neurologic deficits, seizure symptoms, fatigue, weakness, falls, trauma, injuries, ear pain, sinus pain, sore throat, runny nose, dizziness, syncope, near-syncope, skin changes, new rashes, swollen/boggy/inflammed/painful focal joints or muscle groups. no headaches now. no numbness/weakness/tingling/ drooping of face. no hearing changes or vertigo. no tinnitus. no dysphagia or aspiration symptoms. no chest pain, SOA, orthopnea, PND, new edema, leg asymmetry, changes in exertional tolerance, palpitations, cough, sputum production, hemoptysis. no abdominal pain, GERD symptoms, nausea, vomiting, diarrhea, constipation, bloody/black stools, hematemesis, coffee ground emesis, melena, BRBPR. no dysuria, hematuria, urinary frequency, flank pain, nocturia, urinary/bowel incontinance, urinary retention, polyuria, oliguria, appetite problems, night sweats, other constitutional symptoms, GI warning symptoms, mood changes, depression symptoms, confusion, neck rigidity, altered mentation, obtundation, encephalopathic symptoms, meningeal symptoms. vitals stable and bp 's much improved. no new issues otherwise at this time. Objective Vital signs: Temperature 97.8 F 11/13/17 07:24 Pulse Rate 74 11/13/17 11:42 Respiratory Rate 18 11/13/17 07:24 Blood Pressure 149/75 H 11/13/17 11:42 Pulse Oximetry 94 11/13/17 07:24 Rhythm: Normal Sinus Rhythm Height/Weight/BMI: Height 1.65 m Weight 94.7 kg Body Mass Index 34.6 - Constitutional Present: no acute distress, cooperative. Absent: cachectic, diaphoretic, disheveled, combative, agitated, somnolent, obtunded - Routine HEENT Exam Head: Present: normocephalic, atraumatic Eye: Present: EOMI, PERRL ENT: Present: mucous membranes moist - Routine Respiratory Exam Present: CTA bilaterally. Absent: accessory muscle use, patient mechanically ventilated, dyspnea, decreased breath sounds, prolonged expiratory phase, rales , respiratory distress, rhonchi, stridor, wheezes, crackles, distant breath sounds, diminished air movement Comments: lung sounds heard in all lung plata b/l at this time. all findings above bilateral unless otherwise noted. - Routine Abdominal Exam Present: soft (x4.), normoactive bowel sounds (X4.), non distended (x4.), non tender (X4.). Absent: tenderness (X4.), distended (X4.), rebound, guarding, firm, rigid, organomegaly, mass Comments: no ascites, jaundice, distension. - Routine Exam Comments: no tenderness over bladder area. no clinical evidence of upper UTI at this time. - Routine Extremities Exam Absent: cyanosis, joint swelling, pallor, extremity cold to touch Comments: see the above and below. - Routine Back/Spine/Pelvis Exam Comments: see the above. - Routine Musculoskeletal Exam Musculoskeletal: Present: no joint swelling, no erythema, moving extremities well. Absent: joint erythera, joint swelling - Routine Skin Exam Present: intact Comments: no skin changes from previous to uncovered areas. - Routine Neurological Exam Present: alert, oriented X3 CN2-12 in tact. sensation/motor/muscle strength/DTR's normal and symmetrical b/ l X4. PERRLA. EOMI. no nystagmus. consensual reflex in tact. no clinical evidence of upper motor neuron lesion at this time. affect and cognition unchanged from usual baseline. no clinical evidence of wendi, depression, anxiety, altered mentation, obtundation, meningitis, confusion, psychosis, photophobia, delerium at this time. - Routine Lymphatic Exam Lymphatic: Absent: lymphedema - Routine Psychiatric Exam Present: normal affect, normal thought process, cooperative, good insight, good judgment. Absent: suicidal ideation, homicidal ideation, auditory hallucinations, visual hallucinations, tactile hallucinations, depressed, anxious, agitated, paranoid, manic Comments: see above as well. Results - Labs CBC & Chem 7: 11/13/17 03:46 11/13/17 03:46 Assessment and Plan Assessment and Plan: new onset TIA's hypertensive emergency 30 minute period of generalized weakness yesterday which appears to be side effect of labetalol, no such issues since. acute cystitis secondarey to nagy sensitive echoli tension/hypertensive induced headache mild nighttime hypoxemia which is likely chronic. EDVIN? new anemia of uncertain etiology T2DM HTN hyperlipidemia hypothyroid -discharge to home today. getting results of overnight oximetry. bp's improved. no repeats of weakness symptoms with labetalol from yesterday. can work on improving bp's more as an outpatient. have patient check bp in a few days as outpatient. follow blood sugars as outpatient and give call parameters and re-instate medications as indicated. follow for bp recheck in 3 [facility] at [facility]. see discharge summary and orders for details. -cbc's and cmp's generally stable. sugars generally in 100's. b/l renal dopplar u/s unremarkable. troponin's X3 yesterday and today unremarkable. overnight oximetry unremarkable and patient will not need oxygen on discharge but formal sleep study a consideration upon follow op as outpatient. see previous notes for other testing and results from this stay. -continue PO labetalol at current dose and scheduled. continue hydralazine PO at current dose/schedule. continue current ASA, plavix. d/c novolog s/s as well as GLUBS and also hypoglycemia protocol. continue current cipro X1 more day orally as outpatient. continue tylenol prn for headaches. restart home tradjenta for now. continue to hold home metformin as renal function is borderline as to whether it will be tolerated right now. hold home lantus insulin given patient's sugars have looked ok while here. will start with tradjenta and add back meds slowly for diabetes as outpatient. continue current lisionprial (increased to 40mg PO daily this stay). continue current synthroid. d/c previous home metoprolol as it has been replaced with the labetalol above. -Dr. Shell of neurology consulted. tobacco use -patient consulted on smoking cessation. all other chronic medical conditions stable and no changes to plan of care at this time. ppx -continue SCD's and SQ lovenox for DVT ppx while inpatient. patient also ambulating TID. -PO diet for GI ppx. -FULL CODE -dispo discharge to home today. see discharge orders and summary for details. DVT Prophylaxis: SCD's, Lovenox, other (ambulate TID.) GI Prophylaxis: other (PO diet.) Resuscitation Status: Full Code - Time spent with patient Time with patient PN: 50 minutes (discharge.) Sepsis Assessment - Evaluation Severe Sepsis: none seen
--- NOTE | 2017-11-14 07:55 | Discharge Summary ---
MODE OF ADMISSION Inpatient. ATTENDING PHYSICIAN Dr. Willard of [facility]. ADMITTING PHYSICIAN Dr. Willard of [facility]. ANCILLARY SERVICES DURING THE STAY Respiratory Therapy was consulted. Please also note that Speech Therapy did see the patient and she did do well with swallowing. The patient's strength and the lack of residual symptoms of the patient's transient ischemia ischemic attacks was the reason she did not need any Occupational or Physical Therapy while here. CONSULTING PHYSICIANS DURING THE STAY Dr. Shell of Neurology. DISCHARGE DIAGNOSES 1. New-onset transient ischemic attacks. 2. Hypertensive emergency. 3. Acute cystitis secondary to pansensitive E. coli. 4. Tension/hypertensive-induced headaches. 5. A 30-minute period of generalized weakness the day before admission which was secondary to the patient's labetalol with no such issue since. 6. Chronic baseline hypertension. 7. Type 2 diabetes. 8. Hyperlipidemia. 9. Hypothyroid. 10. Mild nighttime hypoxemia which is likely chronic. The patient had unremarkable overnight oximetry while here. 11. Mention of possible bilateral renal artery stenosis by [facility] report which is disputed by our radiology group here. 12. Mild nonspecific anion gap metabolic acidosis on the day of discharge with no clinical issues or concerns to go along with this and likely represents a lab artifact. 13. Chronic smoking. 14. Transient mild anemia. DISCHARGE MEDICINES 1. Ciprofloxacin 250 mg p.o. q.12h. x 1 more day. 2. Plavix 75 mg p.o. daily. 3. Hydralazine 25 mg orally with meals and before bedtime. 4. Labetalol 200 mg p.o. b.i.d. 5. Lisinopril 40 mg p.o. daily. 6. Atorvastatin 20 mg p.o. q.h.s. 7. Aspirin 81 mg p.o. daily. 8. Tradjenta 5 mg p.o. daily. 9. Synthroid 100 mcg p.o. daily. Medications held at this time are the patient's Lantus insulin at 53 units subcutaneously q.h.s. as well as the patient's metformin 1000 mg p.o. b.i.d. The metoprolol that the patient came in on was discontinued in lieu of the labetalol. The patient's lisinopril was bumped from 30 mg to 40 mg. The patient's naproxen was discontinued. Please also note that the ciprofloxacin, Plavix, hydralazine, labetalol, Lipitor are all new medicines. The patient is discharged to home in stable and good condition. She is very much capable of taking care of herself. DIET: Diabetic and cardiac. ACTIVITY: As tolerated. PAIN: As far pain goes, the patient was informed if she has any pain or discomfort to let us know right away. WOUND CARE: The patient was told that if any of her IV sites become red, swollen, painful that she be seen right away. ADDITIONAL INSTRUCTIONS. 1. Order is given to nursing to discontinue all lines, IVs and telemetry the patient didn't come in on before discharge. 2. The patient was informed that if any issues worsen and/or new ones occur she will be seen immediately. 3. The patient was informed that if she cannot access her medications or make her appointments to let us know right away. 4. The patient will check her blood sugars before meals and at bedtime. She will keep a log and she will send in this log to Dr. Willard's nurses every 3-4 days at [facility]. She will call the provider right away for sugars greater than 250 and/or less than 80. 5. Order is given to nursing to set the patient up for a nursing visit and blood pressure/heart rate check in 3 days at [facility] and have this information sent to Dr. Willard. 6. Overnight oximetry during the stay yielded no oxygen needs with sleep. EXPECTED SIGNS/SYMPTOMS The patient informed that she should not have any face numbness, left-sided weakness or other neurological changes/symptoms of stroke. The patient's headache should stay resolved. The patient was told she should not have any more generalized heavy feeling or fatigue. The patient was told to return to care immediately if any numbness/weakness/ tingling/pain, headaches, trouble speaking, trouble understanding speech, face numbness, dizziness, abnormal bleeding, stroke symptoms should occur. Contact numbers were given for Dr. Willard for during business and also after business hours. For pending lab results the patient will follow up with provider. FrankQuit: Smoking will be further discussed as an outpatient. The patient was consulted on smoking cessation while here. She did verbalize understanding of this and all of the above. RETURN TO CARE APPOINTMENTS 1. The patient will return to care with Dr. Willard in 1-2 weeks at [facility] with a CBC, CMP and fasting lipid panel done the day before and sent to him. 2. The patient will follow up with Dr. Shell of Neurology in 2-3 weeks. 3. Order is to be put in from the clinic for a repeat basic metabolic panel tomorrow as well. PERTINENT VITAL SIGNS DURING THE STAY The patient's blood pressure was rather labile while here and did get as high as the 200s to 230 systolic. By discharge it was in the 130s to 140 systolic. The first couple of nights of admission the patient's oxygen levels would drop to the mid 80s. This would come up on oxygen. She was asymptomatic with this and during the day she was fine. The patient was afebrile while here. Heart rates were all normal while here. PERTINENT PHYSICAL EXAM FINDINGS DURING THE STAY The patient's neurological exam and cardiorespiratory exam were completely normal throughout her stay here. PERTINENT LABORATORY DONE DURING THE STAY The patient's white blood cell count on admission was 11.2 and this resolved and was normal throughout the rest of her stay. Hemoglobin did range from 11.7 to 13.2 but generally stayed right around 12.0. Hematocrit was generally normal while here. Platelets were normal while here. Hematocrit was normal on discharge. Rest of the patient's complete blood count indices were unremarkable. PTT and INR were unremarkable on admission. Sodiums, potassiums, chlorides were generally unremarkable while here. The patient's acid base status was generally normal while here. Creatinine was stable at 1.1 to 1.2 while here and her EGFRs were in the mid 40s to low 50s. Blood sugars were generally averaging in the mid-100s while here with a few outliers in the 200s. There were also some outliers in the 80 or 90 range. On the day of discharge the patient's bicarb was 20 and anion gap was 16. There was no clinical correlate to this and we will recheck it as noted above. As noted, there was no clinical evidence of any issue that would correlate with the patient's bicarbonate and so we will recheck it. The patient's magnesium and phosphorus were unremarkable on admission. The patient's magnesium was 1.5, but this was not considered clinically significant. Liver functions tests were normal while here. Troponins x 4 were unremarkable while here. Protein indices were unremarkable while here. TSH was normal on admission. Urinalysis on admission was notable for some nitrate as well as 2+ protein and 20-30 white blood cells per high-power field as well as 3+ bacteria. Pertinent Microbiology: The patient's urine culture grew out greater than 100, 000 colony forming units of Escherichia coli which was pansensitive. PERTINENT IMAGING WHILE HERE IN AND OTHER TESTING The patient's chest x-ray on admission was normal. EKGs done the day of admission as well as on 11/12/2017 were unremarkable and nonacute from the patient's usual baseline. Telemetry was unremarkable while here and no issues were called. Noncontrast CT of the head on 11/09/2017 was unremarkable. MRI and MRA of the brain done on 11/10/2017 was negative. Neck MRA on 11/10/2017 was also unremarkable. Bilateral renal ultrasound with Doppler done on 11/12/2017 was normal. They did mention some bilateral renal artery stenosis on the preliminary [facility] report, but our radiologist disagreed. This was noted to be in general mild on the [facility] report. Echocardiogram done on 11/10/2017 showed an ejection fraction of 65%. There was no intracardiac thrombus or mass. Pulmonary artery pressure was 34. There were no other significant bowel valve issues. HISTORY OF PRESENT ILLNESS AND HOSPITAL COURSE This is a pleasant 62-year-old female known to our clinic. She has a history of type 2 diabetes as well as hypertension and hyperlipidemia. She was in her usual state of health until the morning of admission. She woke up about 4:00 a.m. with numbness and poor coordination in her tongue as well as left upper extremity weakness and poor coordination. This lasted about 30 minutes and resolved completely. For the rest of that day she just kind of felt "out of it " but had no other focal neurologic issues or other changes. The patient was seen in clinic on the day of admission for routine followup and her story was noted. It is also noted that her systolic blood pressures were in the 200s and it was recommended she go to the ER immediately to be evaluated for admission. It was considered she was likely having transient ischemic attacks. She had had two or three other such episodes over the previous month when the patient was questioned further. The patient did eventually go to the emergency room. An extensive imaging and laboratory evaluation was undertaken as is noted above. The patient was maintained on her home aspirin and Plavix was added. A statin has been added as noted above. The patient had no discrete episodes of focal neurologic changes while here. Dr. Shell of Neurology was consulted who generally agreed with the current plan of care. The patient will be followed as an outpatient for this as is noted above. The patient did have high blood pressures while here. They did reach as high as the 230 systolic at times. The patient was admitted to the ICU for this. Her blood pressures were brought down slowly and appropriately with IV labetalol. Please see above for the oral medicines added for this upon discharge. By discharge the patient's systolic blood pressures were in the 130s to 140s and she was tolerating her meds well. We will continue to work on this further as an outpatient. Her blood pressure was stable enough that she could be sent home and the rest of this done as an outpatient as noted. The patient did have about a 30-minute period of generalized weakness the day previous to discharge when she was given her oral labetalol. Troponins and EKGs were unremarkable and this resolved without residual issue. The labetalol dose was decreased from 300 b.i.d. to 200 b.i.d. and she had no more issues with this throughout the rest of her stay. The patient did have some evidence of a urinary tract infection while here. She was treated with oral Cipro. This was done for four days and she still has one day left. She grew out pansensitive E. coli while here. The patient did have tension/hypertensive headaches on admission. These did respond for the most part to Tylenol and had resolved by discharge. We will follow this as an outpatient. The patient did have some mild nighttime hypoxemia on the first couple of days of admission. This was overnight usually and when she was sleeping. She may have an element of obstructive sleep apnea. The patient's overnight oximetry was unremarkable. We will follow this further as an outpatient. The patient did have a hemoglobin of 11.7 or thereabouts the day after admission. This came back up and was generally unremarkable while here. There was no occult evidence of bleeding and this can be watched as noted above as an outpatient. In regard to the patient's history of hypothyroidism. TSH was normal while here. This and the patient's hyperlipidemia will be managed as noted above. The patient is a chronic smoker. She was consulted on smoking cessation. In regard to the patient's acidosis above. There is nothing clinically to suggest any acute issues. The patient's blood sugars were certainly not high enough to make this a likely cause of her lab anomaly. We will follow this tomorrow with a basic metabolic panel. The patient has instructions to return to care if she is feeling ill as noted above. All other chronic medical conditions stable and no other changes to plan of care at this time. For DVT prophylaxis the patient was on SCDs while here. The high blood pressures did limit us using Lovenox for DVT prophylaxis initially, but she was eventually started on this when her blood pressures came down. The patient was also ambulated t.i.d. Next, the patient was continued on an oral diet for GI prophylaxis. Next, the patient was a Full Code while here. DISPOSITION The patient is discharged to home today in stable and good condition. Not all details could be encompassed in this discharge summary, so I do recommend you look at the other testing, orders and results from the stay in the electronic medical record. KERRY
== END 2017-11-13 15:35 | disposition home or self-care (01) | DRG 69 ==
LOC: ED 15:03 → CCU 15:03 → MED 11-11 18:52
PROVIDERS: ADMIT Internal Medicine; ATTEND Internal Medicine